=== PATIENT | female | born 1965 | race Caucasian/White ===

== ENCOUNTER 2023-07-07 11:45 | Emergency (ER) | payer BC, SELFPAY ==
[2023-07-07 11:47] VITALS: BP 189/104
[2023-07-07 12:11] LABS: % Basophils 0.7 % (0-2); % Eosinophils 1.1 % (0-6); % Immature Granulocytes 0.3 % (0-0.5); % Lymphocytes 19.5 % (20.5-51.1); % Neutrophils 71.4 % (42.2-75.2); Absolute Basophils 0.1 10^3/uL (0-0.2); Absolute Eosinophils 0.1 10^3/uL (0-0.7); Absolute Lymphocytes 1.8 10^3/uL (1.2-3.4); Absolute Monocytes 0.7 10^3/uL (0.1-0.6); Absolute Neutrophils 6.7 10^3/uL (1.4-6.5); Hematocrit 39.2 % (37.0-47.0); Hemoglobin 13.7 g/dL (12.0-16.0); Mean Corp Hgb Conc. 34.9 g/dL (33.0-37.0); Mean Corpuscular Hgb 31.8 pg (27.0-31.0); Mean Platelet Volume 10.1 fL (7.4-10.4); Nucleated Red Blood Cells % 0 %; Platelet Count 313 10^3/uL (130-400); Red Blood Cell Count 4.31 10^6/uL (4.20-5.40); Red Cell Dist. Width 12.1 % (11.5-14.5); White Blood Cell Count 9.4 10^3/uL (4.8-10.8)
[2023-07-07 12:42] LABS: ALT (SGPT) 21 U/L (0-35); AST (SGOT) 24 U/L (14-36); Albumin 4.4 g/dl (3.5-5.0); Alkaline Phosphatase 100 U/L (38-126); Blood Urea Nitrogen 12 mg/dl (7-17); Calcium 9.8 mg/dl (8.4-10.2); Carbon Dioxide 25 mmol/L (22-30); Chloride 106 mmol/L (98-107); Glucose 116 mg/dl (70-99); Sodium 136 mmol/L (135-145); Total Bilirubin 0.5 mg/dl (0.2-1.3); Total Protein 7.3 g/dl (6.3-8.2); eGFR > 60.00
--- NOTE | 2023-07-07 12:53 | EDRN ---
this ER RNs first contact with this pt at this time.
[2023-07-07 12:55] VITALS: BMI 28.7
[2023-07-07 13:00] VITALS: BP 161/82
[2023-07-07 14:14] VITALS: BP 157/99
--- NOTE | 2023-07-07 14:32 | ED.GENMED ---
History of Present Illness
General
Chief Complaint: Skin Problem
Source: patient and spouse
Exam Limitations: none
Time Seen by Provider: 07/07/23 13:15
Nursing documentation reviewed up to this point in time: agreed with
Travel History
Have you had any contact with someone who has COVID-19?: No
Do you have any symptoms of coronavirus? Fever > 100 degrees, chills, cough, shortness of breath, sore throat, loss of taste or smell, muscle aches, or headache?: No
History of Present Illness
History of Present Illness:
57-year-old female presents with a generalized rash. It is not itchy, it has a burning quality only on her left upper arm which is where the worst patch is.
Patient had double mastectomy on 05/30/2023 at [facility].
For 2 weeks after that she was on Tylenol 2000 mg a day for about 2 weeks and then has been taking Tylenol 1000 mg daily. She takes an occasional ibuprofen of 600 mg but none recently. She has been on clindamycin 300 mg 3 times daily since her
surgery up until 4 days ago when she took her last dose. She takes gabapentin 300 mg at bedtime.
Her only other medications are losartan, vitamin D and Synthroid.
She gets a rash with penicillin and sulfa
Denies any systemic symptoms such as fever or nausea or diarrhea
Past History
Past History
ED Past Medical History: Cancer (R breast)
ED Past Surgical History: Gynecological (bilateral mastectomy 05/30/23, had no radiation or chemotherapy) and Tonsilectomy
Social History
Tobacco: Non-smoker
Personal:
Living: with family
Review of Systems
Review of Systems
Allergies reviewed?: Yes
All Other Systems: ROS reviewed and negative except as documented in HPI and ROS
Constitutional: Denies fever or chills
Respiratory: Denies trouble breathing
Cardiac: Denies chest pain
ABD/GI: Denies abdominal pain, nausea, vomiting or diarrhea
Musculoskeletal: Reports no symptoms
Skin: Reports rash (non itchy) and other
Neurological: Reports no symptoms
Phy Exam
Physical Exam
Physical Exam:
GENERAL: No acute distress. A&Ox3.
CONSTITUTIONAL: Afebrile.
EYES: PERRL, conjunctivae normal
ENMT: moist mucus membranes, Pharynx nl, no oral/mucosal lesions
RESPIRATORY: Regular respirations, nonlabored, lungs clear.
CARDIOVASCULAR: Regular rate and rhythm, no murmurs, no rubs.
GI: Soft, nontender
MUSCULOSKELETAL: Moves with ease. Well perfused.
SKIN: Warm, dry. Numerous small, discrete papules�covering the entire trunk and extremities, with a more concentrated patch on the left upper arm, face and scalp are spared. Underlying skin is normal. No sloughing of skin
PSYCH: Normal mood and affect. Well kept, interactive and appropriate
NEUROLOGIC: Awake, alert and oriented. No focal neurological deficits
Course
Orders/Labs/Results
Orders:
Orders
07/07/23 11:53
EKG [Electrocardiogram (*1)] Urgent
Reason for Study: Tachycardia
EKG- Treatment ONCE
07/07/23 12:04
CBC/With Diff [Complete Blood Count/With Diff] Urgent
CMP [Comprehensive Metabolic Panel] Urgent
07/07/23 14:45
Dexamethasone Pf [Decadron] 10 mg PO NOW STA
Diphenhydramine [Benadryl] 50 mg PO NOW STA
Abnormal Lab Results
07/07/23
12:04
MCH 31.8 H pg
(27.0-31.0)
Absolute Neuts (auto) 6.7 H 10^3/uL
(1.4-6.5)
Absolute Monos (auto) 0.7 H 10^3/uL
(0.1-0.6)
Lymphocytes % 19.5 L %
(20.5-51.1)
Glucose 116 H mg/dl
(70-99)
07/07/23 12:04
07/07/23 12:04
Vital Signs
Initial and Last Documented VS:
Initial Vital Signs
Temp Pulse Resp BP Pulse Ox
98.1 F 112 16 189/104 100
07/07/23 11:47 07/07/23 11:47 07/07/23 11:47 07/07/23 11:47 07/07/23 11:47
Last Documented Vital Signs
Temp Pulse Resp BP Pulse Ox
98.3 F 84 20 157/99 100
07/07/23 13:01 07/07/23 14:45 07/07/23 13:00 07/07/23 14:14 07/07/23 14:45
MDM/Problems Addressed
Differential Diagnosis Includes:
Drug rash, SJS, Erythema multiform, DRESS
MDM/Problems Addressed:
57-year-old female presents with a generalized rash. It is not itchy, it has a burning quality only on her left upper arm which is where the worst patch is.
Patient had double mastectomy on 05/30/2023 at [facility].
For 2 weeks after that she was on Tylenol 2000 mg a day for about 2 weeks and then has been taking Tylenol 1000 mg daily. She takes an occasional ibuprofen of 600 mg but none recently. She has been on clindamycin 300 mg 3 times daily since her
surgery up until 4 days ago when she took her last dose. She takes gabapentin 300 mg at bedtime.
Her only other medications are losartan, vitamin D and Synthroid.
She gets a rash with penicillin and sulfa
Denies any systemic symptoms such as fever or nausea or diarrhea
Patient was tachycardic on arrival and her EKG showing sinus tachycardia with a rate of 101. During my initial exam at this time her heart rate is vacillating between 70s and 90s with a sinus arrhythmia
07/07/2023 1435 PM
CBC normal
CMP normal
Repeat EKG confirms sinus arrhythmia, copy given to pt to discuss with her PCP
Rx for prednisone 40 mg daily for 4 days sent to her pharmacy. She may also take Benadryl 25 to 50 mg every 6 hours as needed.
No fever, no edema, no skin sloughing or mucosal lesions, no malaise, No lymphadenopathy. Do not suspect DRESS or SJS
History and exam consistent with exanthematous drug eruption most likely from Clindamycin which she stopped 4 days ago.
Pt has f/u appt with her Plastic surgeon at [facility] in 3 days
Chronic conditions affecting care: HTN and Cancer (R breast, bilateral mastectomies 05/30/23)
*Critical Care Note
Total Time (30-74mins, 75-104mins- exclusive of procedures): Not Applicable
ED Attending Note
-
Portions of this chart may have been created with voice recognition software.� Occasional wrong word or��sound alike� substitutions may have occurred due to the inherent limitations of voice recognition software.
Discharge Plan
Departure
Patient Disposition: Home (Routine Discharge)
Date of Disposition: 07/07/23
Time of Disposition: 15:06
Patient with high blood pressure during this ER visit?: Yes
Condition: Good
Discharge Problem:
Drug-induced skin rash
Instructions: Skin Rash (DC), BLOOD PRESSURE
Prescriptions:
New
prednisone 20 mg tablet
40 mg PO DAILY Qty: 8 0RF
Referrals:
Thao Werner CRNP [Family Provider] - Call in 1-3 days for appt
Activity Restrictions/Additional Instructions:
As we discussed, this is most likely a drug rash. Consider yourself allergic to clindamycin with a rash.
I sent a prescription to your pharmacy for prednisone 40 mg daily for the next 4 days, starting tomorrow as you were given a steroid here today.
You may take Benadryl 25 to 50 mg every 6 hours as needed for itching, burning
Drink plenty of fluids
Call your doctors office tomorrow make a follow-up appointment for sometime within the next few days for recheck.
Your EKG is showing a sinus arrhythmia which is not dangerous but I have provided you a copy that you can discuss with your primary provider.
Return here immediately for trouble breathing, wheezing, sloughing of the skin, sores inside the mouth, fever or feeling sicker in any way.
Interventions
Interventions:
*Risk Screen - Suicide Last Done: 07/07/23 11:47
*General Assessment Last Done: 07/07/23 11:47
*Neglect/Abuse Screening Last Done: 07/07/23 11:47
*ED COVID-19 Vaccine History Last Done: 07/07/23 12:54
*Nursing Disposition Last Done: 07/07/23 15:19
ED-Skin Assessment Last Done: 07/07/23 13:04
Discharge Date and Time
Discharge Date/Time: 07/07/23 15:19
[2023-07-07] MEDS: DECADRON 10 MG PO (14:58)
[2023-07-07] MEDS: BENADRYL 50 MG PO (14:58)
== END 2023-07-07 15:19 | disposition home or self-care (01) ==
LOC: EMR 11:45
PROVIDERS: Emergency Medicine; EMERGENCY PHYSICIAN Emergency Medicine; FAMILY PHYSICIAN Nurse Practitioner
DX: L27.0 Generalized skin eruption due to drugs and medicaments taken internally (principal); Z90.13 Acquired absence of bilateral breasts and nipples; Z85.3 Personal history of malignant neoplasm of breast; R03.0 Elevated blood-pressure reading, without diagnosis of hypertension
CPT/HCPCS: 99283; 80053; 85025; 93005

== ENCOUNTER 2023-09-24 13:56 | Outpatient (RCR) | payer BC, SELFPAY | END 2023-09-24 23:59 | disposition home or self-care (01) | LOC: RPT 13:56 | PROVIDERS: FAMILY PHYSICIAN Nurse Practitioner | DX: I89.8 Other specified noninfective disorders of lymphatic vessels and lymph nodes (principal); Z85.3 Personal history of malignant neoplasm of breast; Z98.890 Other specified postprocedural states | CPT/HCPCS: 97110; 97140; 97162; 97535 ==

== ENCOUNTER 2023-10-15 10:04 | Outpatient (RCR) | payer BC, SELFPAY | END 2023-10-15 23:59 | disposition home or self-care (01) | LOC: RPT 10:04 | PROVIDERS: FAMILY PHYSICIAN Nurse Practitioner | DX: I89.8 Other specified noninfective disorders of lymphatic vessels and lymph nodes (principal); Z85.3 Personal history of malignant neoplasm of breast; Z73.6 Limitation of activities due to disability; Z98.890 Other specified postprocedural states | CPT/HCPCS: 97110; 97112; 97140 ==

== ENCOUNTER 2023-11-14 08:56 | Outpatient (RCR) | payer BC, SELFPAY | END 2023-11-14 09:56 | disposition home or self-care (01) | LOC: RPT 08:56 | PROVIDERS: FAMILY PHYSICIAN Nurse Practitioner | DX: I89.8 Other specified noninfective disorders of lymphatic vessels and lymph nodes (principal); Z73.6 Limitation of activities due to disability; Z85.3 Personal history of malignant neoplasm of breast; Z98.890 Other specified postprocedural states | CPT/HCPCS: 97110; 97112; 97140; 97535 ==

== ENCOUNTER → 2024-05-12 06:27 | Day surgery (SDC) | payer BC, SELFPAY | LOC: GI 06:27 | PROVIDERS: ATTENDING PHYSICIAN Internal Medicine Gastroenterology | DX: Z12.11 Encounter for screening for malignant neoplasm of colon (principal); D12.2 Benign neoplasm of ascending colon; D12.3 Benign neoplasm of transverse colon; D12.5 Benign neoplasm of sigmoid colon; K62.89 Other specified diseases of anus and rectum; Z86.0101 Personal history of adenomatous and serrated colon polyps | CPT/HCPCS: 45380; 88305 ==